=== PATIENT | female | born 1985 | race Caucasian/White ===

== ENCOUNTER 2019-01-27 14:08 | Outpatient (CLI) | payer MEDICAID ==
[2019-01-27 15:26] LABS: ADD MAN DIFF? NO
[2019-01-27 15:30] LABS: WHITE BLOOD COUNT 5.5 10^3/ul (4.8-10.8)
[2019-01-27 15:30] LABS: BASOPHILS % 0.2 % (0.0-2.0); EOSINOPHILS # 0.1 10^3/ul (0.0-0.5); EOSINOPHILS % 0.9 % (0.0-7.0); HEMATOCRIT 32.6 % (37.0-47.0); HEMOGLOBIN 11.2 g/dl (12.0-16.0); LYMPHOCYTES # 1.4 10^3/ul (0.8-2.9); MEAN CORPUSCULAR HEMOGLOBIN 31.8 pg (29.0-33.0); MEAN CORPUSCULAR HGB CONC 34.4 g/dl (32.0-37.0); MEAN CORPUSCULAR VOLUME 92.6 fl (82.0-101.0); MEAN PLATELET VOLUME 11.1 fl (7.4-10.4); MONOCYTE # 0.3 10^3/ul (0.3-0.9); MONOCYTES % 4.6 % (0.0-11.0); NEUTROPHIL # 3.7 10^3/ul (1.6-7.5); NEUTROPHILS % 67.9 % (39.0-77.0); PLATELET COUNT 238 10^3/UL (140-415); RED BLOOD COUNT 3.52 10^6/ul (4.20-5.40); RED CELL DISTRIBUTION WIDTH 12.3 % (11.5-14.5)
[2019-01-27 15:49] LABS: ALANINE AMINOTRANSFERASE 28 IU/L (13-69); ALBUMIN 3.4 g/dl (3.3-4.9); ALBUMIN/GLOBULIN RATIO 0.97; ALKALINE PHOSPHATASE 180 IU/L (42-121); ANION GAP 11 (5-13); ASPARTATE AMINO TRANSFERASE 29 IU/L (15-46); BILIRUBIN,INDIRECT 0.4 mg/dl (0-1.1); BILIRUBIN,TOTAL 0.4 mg/dl (0.2-1.3); BLOOD UREA NITROGEN 8 mg/dl (7-20); CALCIUM 8.9 mg/dl (8.4-10.2); CARBON DIOXIDE 21 mmol/L (21-31); CHLORIDE 108 mmol/L (97-110); CREATININE 0.42 mg/dl (0.44-1.00); Estimated GFR > 60 mL/min (>60); GLUCOSE 151 mg/dl (70-220); POTASSIUM 3.9 mmol/L (3.5-5.1); SODIUM 140 mmol/L (135-144); TOTAL PROTEIN 6.9 g/dl (6.1-8.1)
[2019-01-30 20:11] LABS: CHENODEOXYCHOLIC ACID 11.4 umol/L (< OR = 3.1); CHOLIC ACID 27.1 umol/L (< OR = 1.8); DEOXYCHOLIC ACID 9.6 umol/L (< OR = 2.4); TOTAL BILE ACIDS 48.2 umol/L (< OR = 6.8)
== END 2019-01-27 17:10 | disposition home or self-care (01) ==
LOC: OBT 14:08 → L-D 14:09 → OBT 17:10
DX: O26.893 Other specified pregnancy related conditions, third trimester (principal); Z3A.33 33 weeks gestation of pregnancy; L29.9 Pruritus, unspecified
CPT/HCPCS: 76818; 80053; 83789; 85025

== ENCOUNTER 2019-02-02 16:50 | Emergency (ER) | payer MEDICAID | END 2019-02-02 20:33 | disposition home or self-care (01) | LOC: FTE 20:33 | DX: B34.9 Viral infection, unspecified (principal); J30.9 Allergic rhinitis, unspecified | CPT/HCPCS: 99283; Z7502 ==

== ENCOUNTER 2019-02-09 12:20 | Outpatient (CLI) | payer MEDICAID | END 2019-02-09 14:30 | disposition home or self-care (01) | LOC: OBT 12:20 → L-D 12:20 → OBT 14:30 | DX: O26.613 Liver and biliary tract disorders in pregnancy, third trimester (principal); K83.1 Obstruction of bile duct; Z3A.34 34 weeks gestation of pregnancy | CPT/HCPCS: 76818 ==

== ENCOUNTER 2019-02-15 19:31 | Inpatient (IN) | payer MEDICAID ==
[2019-02-15 20:40] LABS: ALANINE AMINOTRANSFERASE 206 IU/L (13-69); ALBUMIN 3.5 g/dl (3.3-4.9); ALBUMIN/GLOBULIN RATIO 0.89; ALKALINE PHOSPHATASE 274 IU/L (42-121); ANION GAP 10 (5-13); ASPARTATE AMINO TRANSFERASE 71 IU/L (15-46); BILIRUBIN,INDIRECT 0.4 mg/dl (0-1.1); BILIRUBIN,TOTAL 0.4 mg/dl (0.2-1.3); BLOOD UREA NITROGEN 12 mg/dl (7-20); CALCIUM 8.9 mg/dl (8.4-10.2); CARBON DIOXIDE 20 mmol/L (21-31); CHLORIDE 107 mmol/L (97-110); CREATININE 0.42 mg/dl (0.44-1.00); Estimated GFR > 60 mL/min (>60); GLUCOSE 132 mg/dl (70-220); POTASSIUM 3.9 mmol/L (3.5-5.1); SODIUM 137 mmol/L (135-144); TOTAL PROTEIN 7.4 g/dl (6.1-8.1)
[2019-02-15] MEDS: URSODIOL 300 MG CAP PO (21:00)
[2019-02-15] MEDS: BETAMET NA PHOS/AC(6 MG/ML) 2 ML INJ SYG IM (23:25)
[2019-02-16] MEDS ORDERED: HYDROmorphONE 0.5 MG/0.5 ML SYG IV (00:30)
[2019-02-16] MEDS: COLESEVELAM 625 MG TAB PO ×5 (02:29→23:33)
[2019-02-16] MEDS: PRENATAL VITAMIN PO (09:03)
[2019-02-16] MEDS: URSODIOL 300 MG CAP PO ×3 (09:03→20:52)
[2019-02-16] MEDS: BETAMET NA PHOS/AC(6 MG/ML) 2 ML INJ SYG IM (22:13)
[2019-02-17] MEDS ORDERED: MINERAL OIL LIGHT 10 ML VIAL TOP (05:00)
[2019-02-17] MEDS ORDERED: LIDOCAINE 1% (MPF) 30 ML INJ INJ (05:00)
[2019-02-17] MEDS ORDERED: CARBOPROST 250 MCG INJ IM ×2 (05:00→22:30)
[2019-02-17] MEDS ORDERED: MISOPROSTOL 200 MCG TAB PR ×2 (05:00→22:30)
[2019-02-17] MEDS ORDERED: OXYTOCIN 30 UNITS/LR 500 ML IV ×4 (05:00→22:30)
[2019-02-17] MEDS ORDERED: BUTORPHANOL 2 MG INJ IV (05:00)
[2019-02-17] MEDS ORDERED: METHYLERGONOVINE 0.2 MG INJ IM ×2 (05:00→22:30)
[2019-02-17] MEDS: LACTATED RINGER'S 1,000 ML IV ×3 (05:26→17:46)
[2019-02-17 05:40] LABS: ADD MAN DIFF? NO
[2019-02-17 05:48] LABS: WHITE BLOOD COUNT 8.3 10^3/ul (4.8-10.8)
[2019-02-17 05:48] LABS: BASOPHILS % 0.2 % (0.0-2.0); EOSINOPHILS % 0.1 % (0.0-7.0); HEMATOCRIT 31.9 % (37.0-47.0); HEMOGLOBIN 10.6 g/dl (12.0-16.0); LYMPHOCYTES # 1.2 10^3/ul (0.8-2.9); LYMPHOCYTES % 14.9 % (15.0-51.0); MEAN CORPUSCULAR HEMOGLOBIN 30.9 pg (29.0-33.0); MEAN CORPUSCULAR HGB CONC 33.2 g/dl (32.0-37.0); MEAN PLATELET VOLUME 11.3 fl (7.4-10.4); MONOCYTE # 0.2 10^3/ul (0.3-0.9); MONOCYTES % 2.8 % (0.0-11.0); NEUTROPHIL # 6.7 10^3/ul (1.6-7.5); NEUTROPHILS % 80.4 % (39.0-77.0); PLATELET COUNT 276 10^3/UL (140-415); RED BLOOD COUNT 3.43 10^6/ul (4.20-5.40); RED CELL DISTRIBUTION WIDTH 12.7 % (11.5-14.5)
[2019-02-17 05:59] LABS: INR 0.81; PROTIME 11.3 Sec (11.9-14.9); PT RATIO 0.9
[2019-02-17 06:00] LABS: PARTIAL THROMBOPLASTIN TIME 25.8 Sec (23.0-35.0)
[2019-02-17] MEDS ORDERED: MISOPROSTOL 50 MCG CAPSULE VAG (06:00)
[2019-02-17] MEDS: AMPICILLIN 2 GM/NS (PMX) 100 ML IV (06:16)
[2019-02-17 06:17] LABS: ALANINE AMINOTRANSFERASE 168 IU/L (13-69); ALBUMIN 3.6 g/dl (3.3-4.9); ALBUMIN/GLOBULIN RATIO 0.92; ALKALINE PHOSPHATASE 241 IU/L (42-121); ANION GAP 11 (5-13); ASPARTATE AMINO TRANSFERASE 55 IU/L (15-46); BILIRUBIN,INDIRECT 0.3 mg/dl (0-1.1); BILIRUBIN,TOTAL 0.3 mg/dl (0.2-1.3); BLOOD UREA NITROGEN 14 mg/dl (7-20); CALCIUM 9.1 mg/dl (8.4-10.2); CARBON DIOXIDE 20 mmol/L (21-31); CHLORIDE 105 mmol/L (97-110); Estimated GFR > 60 mL/min (>60); GLUCOSE 154 mg/dl (70-220); POTASSIUM 4.6 mmol/L (3.5-5.1); SODIUM 136 mmol/L (135-144); TOTAL PROTEIN 7.5 g/dl (6.1-8.1)
[2019-02-17] MEDS: COLESEVELAM 625 MG TAB PO ×3 (06:19→19:33)
[2019-02-17 06:48] LABS: HEPATITIS B SURFACE ANTIGEN NEGATIVE (NEGATIVE)
[2019-02-17] MEDS: URSODIOL 300 MG CAP PO ×2 (09:11→19:32)
[2019-02-17] MEDS: AMPICILLIN 1 GM/NS (PMX) 50 ML IV ×3 (09:52→19:32)
[2019-02-17] MEDS: PRENATAL VITAMIN PO (09:57)
[2019-02-17 15:05] LABS: RAPID PLASMA REAGIN NONREACTIVE (NR)
[2019-02-17] MEDS: CITRIC ACID/NA CITRATE 30 ML CUP PO (17:46)
[2019-02-17] MEDS ORDERED: KETOROLAC 30 MG INJ (18:10)
[2019-02-17] MEDS ORDERED: morphine SULFATE/PF (10 MG/10 ML) INJ (18:10)
[2019-02-17] MEDS ORDERED: ONDANSETRON 4 MG INJ (18:10)
[2019-02-17] MEDS ORDERED: METOCLOPRAMIDE 10 MG INJ (18:10)
[2019-02-17] MEDS: OXYTOCIN 30 UNITS/LR 500 ML IV (19:31)
[2019-02-17] MEDS: CEFAZOLIN 2 GM/50 ML (PMX) 50 ML IVPB (19:31)
[2019-02-17] MEDS: AZITHROMYCIN 500MG/NS (PMX) 250 ML IVPB (19:33)
[2019-02-17] MEDS: KETOROLAC 30 MG INJ IV (21:57)
[2019-02-17] MEDS ORDERED: ONDANSETRON 4 MG INJ IV ×2 (22:00)
[2019-02-17] MEDS ORDERED: NALOXONE (0.4 MG/ML) INJ IV (22:00)
[2019-02-17] MEDS ORDERED: morphine 2 MG INJ IV ×3 (22:00)
[2019-02-17] MEDS ORDERED: morphine (1 MG/ML) 10ML SYRINGE IV ×3 (22:00)
[2019-02-17] MEDS ORDERED: LANOLIN HPA 1 PKT TOP (22:30)
[2019-02-17] MEDS ORDERED: NA PHOSPHATE/BIPHOS 133 ML ENEMA PR (22:30)
[2019-02-17] MEDS: DIPHENHYDRAMINE 50 MG INJ IV (23:11)
[2019-02-18] MEDS: LACTATED RINGER'S 1,000 ML IV (00:12)
[2019-02-18] MEDS: CEFAZOLIN 2 GM/50 ML (PMX) 50 ML IVPB ×3 (00:13→16:23)
[2019-02-18] MEDS: COLESEVELAM 625 MG TAB PO ×5 (00:26→23:38)
[2019-02-18] MEDS: CLINDAMYCIN 300 MG CAP PO ×5 (00:27→23:38)
[2019-02-18 08:23] LABS: ADD MAN DIFF? NO
[2019-02-18 08:35] LABS: WHITE BLOOD COUNT 9.4 10^3/ul (4.8-10.8)
[2019-02-18 08:35] LABS: BASOPHILS % 0.2 % (0.0-2.0); EOSINOPHILS % 0.3 % (0.0-7.0); HEMATOCRIT 24.7 % (37.0-47.0); HEMOGLOBIN 8.2 g/dl (12.0-16.0); LYMPHOCYTES % 21.4 % (15.0-51.0); MEAN CORPUSCULAR HEMOGLOBIN 30.9 pg (29.0-33.0); MEAN CORPUSCULAR HGB CONC 33.2 g/dl (32.0-37.0); MEAN CORPUSCULAR VOLUME 93.2 fl (82.0-101.0); MEAN PLATELET VOLUME 11.6 fl (7.4-10.4); MONOCYTE # 0.5 10^3/ul (0.3-0.9); MONOCYTES % 5.1 % (0.0-11.0); NEUTROPHIL # 6.8 10^3/ul (1.6-7.5); NEUTROPHILS % 72.6 % (39.0-77.0); PLATELET COUNT 224 10^3/UL (140-415); RED BLOOD COUNT 2.65 10^6/ul (4.20-5.40); RED CELL DISTRIBUTION WIDTH 12.8 % (11.5-14.5)
[2019-02-18] MEDS: SENNA/DOCUSATE NA (8.6MG/50MG) TAB PO ×2 (08:55→21:05)
[2019-02-18] MEDS: URSODIOL 300 MG CAP PO ×3 (08:56→21:09)
[2019-02-18] MEDS: BISACODYL 10 MG SUPP PR (10:30)
[2019-02-18] MEDS: KETOROLAC 30 MG INJ IV (17:27)
[2019-02-18] MEDS: IBUPROFEN 800 MG TAB PO (21:09)
[2019-02-18] MEDS: OXYCODONE/ACETAMINOPHEN (5/325) TAB PO (23:39)
[2019-02-19] MEDS: CLINDAMYCIN 300 MG CAP PO ×4 (05:45→23:59)
[2019-02-19] MEDS: IBUPROFEN 800 MG TAB PO ×3 (05:46→21:46)
[2019-02-19] MEDS: COLESEVELAM 625 MG TAB PO ×3 (05:46→17:28)
[2019-02-19] MEDS: URSODIOL 300 MG CAP PO ×3 (09:13→21:20)
[2019-02-19] MEDS: SENNA/DOCUSATE NA (8.6MG/50MG) TAB PO ×2 (09:13→21:21)
[2019-02-19] MEDS: FERROUS GLUCONATE (EC) 325 MG TAB PO ×2 (09:13→21:21)
[2019-02-19] MEDS: OXYCODONE/ACETAMINOPHEN (5/325) TAB PO (11:20)
[2019-02-19] MEDS ORDERED: ACETAMINOPHEN 325 MG TAB PO (15:30)
[2019-02-19] MEDS: HYDROCODONE/APAP (5/325) TAB PO (18:35)
[2019-02-20] MEDS: COLESEVELAM 625 MG TAB PO ×4 (05:44→17:39)
[2019-02-20] MEDS: IBUPROFEN 800 MG TAB PO ×2 (05:44→15:31)
[2019-02-20] MEDS: CLINDAMYCIN 300 MG CAP PO ×3 (05:44→17:39)
[2019-02-20] MEDS: SENNA/DOCUSATE NA (8.6MG/50MG) TAB PO (08:58)
[2019-02-20] MEDS: URSODIOL 300 MG CAP PO (08:58)
[2019-02-20] MEDS: FERROUS GLUCONATE (EC) 325 MG TAB PO (08:58)
[2019-02-20] MEDS ORDERED: MEASLES,MUMPS,RUBELLA VACCINE INJ SC* (09:00)
[2019-02-20] MEDS ORDERED: DIPHTH/TET/ACEL PERTUSS (ADULT) 0.5 ML VIAL IM* (09:00)
[2019-02-20] MEDS: OXYCODONE/ACETAMINOPHEN (5/325) TAB PO (17:42)
== END 2019-02-20 18:30 | disposition home or self-care (01) | DRG 786 ==
LOC: OBT 19:31 → L-D 19:32 → OBT 19:35 → L-D 19:35 → PP1 22:52 → L-D 02-17 19:19 → PP1 02-17 22:07
PROC: 10D00Z1 Extraction of Products of Conception, Low, Open Approach (ICD-10-PCS; principal; 2019-02-19)
DX: O26.62 Liver and biliary tract disorders in childbirth (principal); K83.1 Obstruction of bile duct; O60.13X0 Preterm labor second trimester with preterm delivery third trimester, not applicable or unspecified; O32.2XX0 Maternal care for transverse and oblique lie, not applicable or unspecified; Z3A.36 36 weeks gestation of pregnancy; Z37.0 Single live birth
CPT/HCPCS: 71045; 76815; 80053; 85025; 85610; 85730; 86592; 86850; 86900; 86901; 87340; 99464